=== PATIENT | male | born 2000 | race Caucasian/White ===

== ENCOUNTER 2024-10-13 09:58 | Emergency (ER) | payer MEDICAID ==
[~2024-10-13] VITALS: Ht 172.7 cm; Wt 69.0 kg
[2024-10-13 10:43] VITALS: O2SAT 99
[2024-10-13] MEDS: CARBAMIDE PEROXIDE 6.5% OTIC SOLN 15ML LEFT EAR ONE (12:15)
[2024-10-13] MEDS ORDERED: OFLO5DRO4 EACH EAR (13:22)
[2024-10-13] MEDS ORDERED: OFLO5DRO4 LEFT EAR (13:32)
[2024-10-13 13:53] VITALS: BP 133/88; PULSE 58; RESP 16; TEMP 37.1; O2SAT 100
== END 2024-10-13 13:54 | disposition home or self-care (01) ==
LOC: ER 09:58
DX: H60.392 Other infective otitis externa, left ear (principal)
CPT/HCPCS: 99283; 99284